=== PATIENT | male | born 1940 | race Caucasian/White ===

== ENCOUNTER → 2016-10-01 | Outpatient (CLI) | payer MEDICARE, BC ==
[~2016-10-01] MED LIST: ADALAT CC30 MG PO; AMBIEN10 MG PO; ATENOLOL25 MG PO; BAYER ASPIRIN325 M1 PO; CARVEDILOL25 MG PO; CLOPIDOGREL75 MG PO; DICLOFENAC PO; FLEXERIL PO; GLYBURIDE; GLYBURIDE2.5 M1 PO; HYDRALAZINE HCL25 MG PO; LASIX20 MG PO; LORTAB 5/500 TA1 TA1 PO; MEDROL DOSEPAK4 MG PO; METFORMIN; METFORMIN HCL500 M1 PO; NISOLDIPINE30 MG PO; NORVASC10 MG PO; PRINIVIL40 MG PO; PROTONIX PO; SIMVASTATIN20 MG PO; TENORMIN50 MG PO; TRIAMTERENE-HC1 EAC1 PO
--- NOTE | ~2016-10-01 | CT57 ---
[facility] A Service of [facility] RADIOLOGY TEXT RESULTS PATIENT: KASSANDRA HARKINS LOCATION: [facility] : 40 UNIT #: [id number] AGE: [address]: Sal Melara MD SEX: M ORDER DR: [id number] [place] [id number] O MR#: [id number] Acc #: [id number] NAME: KASSANDRA HARKINS. : 1940 SEX: M STUDY DATE/TIME: 10/01/2016 12:32 UNIT: [facility] ROOM: STUDY DESCRIPTION: CT Chest Wo Cont Attending Physician: Sal Melara M.D. Referring Physician: Sal Melara M.D. Ordering Physician: Richmond Aleman M.D. Primary Care Physician: Richmond Aleman M.D. MEDICAL IMAGING REPORT This report is preliminary unless electronic signature is present. EXAM CT chest INDICATIONS Enlarged lymph nodes. Shortness of air. Pulmonary sarcoidosis. Restaging. TECHNIQUE CT of the chest without contrast. Coronal and sagittal reconstructions were obtained. The CT exam was performed with one or more of the following radiation dose reduction techniques: automatic exposure control, adjustment of mA and/or kV according to patient size, and iterative reconstruction. COMPARISON CT chest 03/26/2016, and 10/30/2015, 01/12/2015. FINDINGS There are is some enlarged mediastinal and hilar lymph nodes. These are stable from the patient's prior studies. An index AP window lymph node measures 1.7 cm, unchanged. A right paratracheal lymph node measures 1.4 cm compared with 1.3 cm previously. A right hilar lymph node measures 1.3 cm, unchanged. Non index lesions are also unchanged in size. There is no pericardial effusion. Patient does have a small right pleural effusion. There is minimal atelectasis in the right lung base. Central airways are patent. The liver is morphologically cirrhotic. There are no acute osseous abnormalities. IMPRESSION [facility] A Service of [facility] RADIOLOGY TEXT RESULTS PATIENT: KASSANDRA HARKINS LOCATION: [facility] : 40 UNIT #: [id number] AGE: [address]: Sal Melara MD SEX: M ORDER DR: 1. Mediastinal and bilateral hilar lymphadenopathy is unchanged from at least 01/12/2015. Patient has reported history of sarcoidosis. 2. Development of a small right pleural effusion. Dictated by... Rene Cui M.D. THIS IS AN ELECTRONICALLY VERIFIED REPORT Rene Cui M.D. at 10/02/2016 3:35 PM AYAN/silvestre TD: 10/02/2016 08:26 JOB #: [id number] MEDICAL IMAGING REPORT Page 1 of 1
== END | disposition home or self-care (01) ==
LOC: SCT 12:28
DX: R59.0 Localized enlarged lymph nodes (principal); J90 Pleural effusion, not elsewhere classified
CPT/HCPCS: 71250